=== PATIENT | female | born 1955 | race Caucasian/White ===

== ENCOUNTER 2017-02-27 11:34 | Emergency (ER) | payer OTHER, MEDICARE ==
[~2017-02-27 11:34] MED LIST: AMPH20TA17 PO; ASCO-599 PO; BEN20 PO; CEP500 PO; CLON-303 *; FLUO-202 PO; LOR5 PO; SIMV-42 PO; [UNRECOGNIZED DRUG - CODE] PO
--- NOTE | 2017-02-27 11:44 | ER Report ---
History and Physical Time Seen By MD: 11:44 HPI/ROS CHIEF COMPLAINT: Constipation HISTORY OF PRESENT ILLNESS: This is a 61-year-old female who presents to the emergency department for complaints of constipation. Patient states that over the last couple days she developed some right back pain which she states is been consistent with constipation issues she's had the past. Patient states that she went to the bathroom once today and is very small amounts nothing yesterday which is unusual for her. Patient also states that the last couple days she slept on her daughter's sofa over the holidays and has had increased back pain since then. Patient would like evaluation for her constipation. Patient denies urinary symptoms no frequency, urgency no aches, pains no chills denies nausea or vomiting. REVIEW OF SYSTEMS: Respiratory: No cough, no dyspnea. Cardiovascular: No chest pain, no palpitations. Gastrointestinal: As above. Musculoskeletal: As above. Allergies: Coded Allergies: Egg (Unverified Adverse Reaction, Mild, POST NASAL DRIP, 05/18/09) Peanut (Unverified Adverse Reaction, Mild, POST NASAL DRIP, 05/18/09) No Known Drug Allergies (Verified , 08/30/08) Home Meds Reported Medications Ascorbate Calcium (Vitamin C) 500 Mg Tablet, 500 MG PO, 0 Refills 05/18/09 Simvastatin (Zocor) 20 Mg Tablet, 20 MG PO QHS, 0 Refills 05/18/09 Benazepril Hcl 20 MG TAB (Benazepril Hcl 20 MG TAB) 20 Mg Tablet, 20 MG PO DAILY , 0 Refills 05/18/09 Fluoxetine Hcl (Prozac) 20 Mg Capsule, 20 MG PO, 0 Refills 08/30/08 Clonazepam (Clonazepam) 1 Mg Tablet, 1 MG *, 0 Refills 08/30/08 Amphet Asp/Amphet/D-Amphet (Adderall 20 Mg Tablet) 20 Mg Tablet, 20 MG PO, 0 Refills 08/30/08 Discontinued Reported Medications Cephalexin Monohydrate (Keflex) 500 Mg Cap, 500 MG PO QID, #28 0 Refills 05/18/09 Acetaminophen/Hydrocodone (Lortab 5/500) 5 Mg/500 Mg Tab, 1 - 2 TAB PO Q6H, 0 Refills 05/18/09 Guaifenesin (Guaifenesin) 400 Mg Tablet, 400 MG PO, 0 Refills 08/30/08 Past Medical/Surgical History She has a past medical history of hypertension, hypercholesterolemia, no indicated surgeries. Reviewed Nurses Notes: Yes Constitutional Vital Sign - Last 24 Hours 02/27/17 02/27/17 02/27/17 02/27/17 11:40 11:43 11:44 11:48 Temp 97.7 Pulse 62 62 Resp 20 B/P (MAP) 160/94 (116) 160/94 138/87 (104) Pulse Ox 98 97 O2 Delivery Room Air 02/27/17 12:50 Pulse 62 B/P (MAP) 127/84 (98) Pulse Ox 94 Physical Exam General Appearance: The patient is alert, has no immediate need for airway protection and no current signs of toxicity. Eyes: Pupils equal and round no injection. Respiratory: Chest is non tender, lungs are clear to auscultation. Cardiac: regular rate and rhythm, no murmurs, clicks or rubs. Gastrointestinal: Abdomen is soft and non tender, no masses, bowel sounds normal. Musculoskeletal: Neck: Neck is supple and non tender. Right CVA tenderness. Extremities have full range of motion and are non tender. Skin: No rashes or lesions. DIFFERENTIAL DIAGNOSIS: After history and physical exam differential diagnosis was considered for back pain including but not limited to muscular pain, herniated disc, spine fracture, intra-abdominal causes and urinary tract infection. Medical Decision Making Data Points Laboratory Hematology Test 02/27/17 11:57 Urine Color Straw Urine Clarity Clear Urine pH 6.0 pH (4.8-9.5) Urine Specific [place] 1.003 Urine Protein Negative mg/dL (NEGATIVE) Urine Glucose (UA) Negative mg/dL (NEGATIVE) Urine Ketones Negative mg/dL (NEGATIVE) Urine Blood Negative (NEGATIVE) Urine Nitrite Negative (NEGATIVE) Urine Bilirubin Negative (NEGATIVE) Urine Urobilinogen Negative mg/dL (0.2-1.9) Urine Leukocyte Esterase Negative (NEGATIVE) Urine RBC /HPF (0-2/HPF) Urine WBC 1 /HPF (0-5/HPF) Urine Squamous Epithelial Cells None /LPF (</=FEW) Urine Bacteria Negative /HPF (NONE-FEW) Urine Mucus None /HPF (NONE-FEW) Chemistry Test 02/27/17 11:57 Urine Color Straw Urine Clarity Clear Urine pH 6.0 pH (4.8-9.5) Urine Specific [place] 1.003 Urine Protein Negative mg/dL (NEGATIVE) Urine Glucose (UA) Negative mg/dL (NEGATIVE) Urine Ketones Negative mg/dL (NEGATIVE) Urine Blood Negative (NEGATIVE) Urine Nitrite Negative (NEGATIVE) Urine Bilirubin Negative (NEGATIVE) Urine Urobilinogen Negative mg/dL (0.2-1.9) Urine Leukocyte Esterase Negative (NEGATIVE) Urine RBC /HPF (0-2/HPF) Urine WBC 1 /HPF (0-5/HPF) Urine Squamous Epithelial Cells None /LPF (</=FEW) Urine Bacteria Negative /HPF (NONE-FEW) Urine Mucus None /HPF (NONE-FEW) Urinalysis Test 02/27/17 11:57 Urine Color Straw Urine Clarity Clear Urine pH 6.0 pH (4.8-9.5) Urine Specific [place] 1.003 Urine Protein Negative mg/dL (NEGATIVE) Urine Glucose (UA) Negative mg/dL (NEGATIVE) Urine Ketones Negative mg/dL (NEGATIVE) Urine Blood Negative (NEGATIVE) Urine Nitrite Negative (NEGATIVE) Urine Bilirubin Negative (NEGATIVE) Urine Urobilinogen Negative mg/dL (0.2-1.9) Urine Leukocyte Esterase Negative (NEGATIVE) Urine RBC /HPF (0-2/HPF) Urine WBC 1 /HPF (0-5/HPF) Urine Squamous Epithelial Cells None /LPF (</=FEW) Urine Bacteria Negative /HPF (NONE-FEW) Urine Mucus None /HPF (NONE-FEW) EKG/Imaging Imaging FACILITY: [facility] - [place] PATIENT NAME: Maliha Scales : 1955 MR: [id number] V: [id number] EXAM DATE: ORDERING PHYSICIAN: JORDON OMALLEY TECHNOLOGIST: Location: [facility] - [place] Patient: Maliha Scales : 1955 Visit/Account:[id number] Date of Sevice: 02/27/2017 ACUTE ABDOMEN SERIES 3 VIEW HISTORY: evaluate for consitpation COMPARISON: None. FINDINGS: Heart is normal. Lungs are clear. No free air. Nonobstructive bowel pattern. No free air, pneumatosis or focal wall thickening. Stool burden is within normal limits. IMPRESSION: Unremarkable abdominal series Report Dictated By: Florentino Fulton MD at 02/27/2017 12:17 PM Report E-Signed By: Florentino Fulton MD at 02/27/2017 12:18 PM [id number] ED Course/Re-evaluation ED Course Patient was admitted to room. History and physical were obtained. Differential diagnoses were considered. A 3 view abdomen series was negative for constipation. UA was negative for UTI or blood. I did review these results with the patient. Patient thought maybe the back pain was related to sleeping on her daughter's couch for a couple days over the holidays. Patient has no other complaints at this time. The patient was encouraged to follow up with her primary care provider for future needs. Patient was encouraged to return to the emergency department for worsening symptoms. No depressions or concerns at the time of discharge. Decision to Disposition Date: Feb 27, 2017 Decision to Disposition Time: 12:52 Depart Departure Latest Vital Signs Vital Signs Date Time Temp Pulse Resp B/P (MAP) Pulse Ox O2 Delivery O2 Flow Rate FiO2 02/27/17 12:50 62 127/84 (98) 94 02/27/17 11:43 97.7 20 Room Air Impression: Primary Impression: Back pain Condition: Improved Disposition: HOME OR SELF-CARE Patient Instructions: Back Pain (ED) Additional Instructions: Drink plenty of fluids. Get plenty of rest. Try gentle range of motion exercises to help eliminate low back discomfort. You can take ibuprofen 600 mg every 6 hours as needed for discomfort. If the pain is persistent follow-up with her primary care provider this week. May return to the ED for worsening symptoms. Problem Qualifiers Primary Impression: Back pain Back pain location: low back pain Chronicity: acute Back pain laterality: right Sciatica presence: without sciatica Qualified Codes: M54.5 - Low back pain JORDON [id number] Feb 27, 2017 11:44
--- NOTE | 2017-02-27 12:22 | RADIOLOGY IMAGING REPORT ---
FACILITY: [facility] [place] PATIENT NAME: Maliha Scales : 1955 MR: [id number] V: [id number] EXAM DATE: ORDERING PHYSICIAN: JORDON OMALLEY TECHNOLOGIST: Location: [facility] - [place] Patient: Maliha Scales : 1955 Visit/Account:[id number] Date of Sevice: 02/27/2017 ACUTE ABDOMEN SERIES 3 VIEW HISTORY: evaluate for consitpation COMPARISON: None. FINDINGS: Heart is normal. Lungs are clear. No free air. Nonobstructive bowel pattern. No free air, pneumat osis or focal wall thickening. Stool burden is within normal limits. IMPRESSION: Unremarkable abdominal series Report Dictated By: Florentino Fulton MD at 02/27/2017 12:17 PM Report E-Signed By: Florentino Fulton MD at 02/27/2017 12:18 PM WSN:[email or web address]
[2017-02-27 12:50] VITALS: BP 127/84
== END 2017-02-27 12:57 | disposition home or self-care (01) ==
LOC: ER 11:35
DX: M54.5 Low back pain (principal)
CPT/HCPCS: 74022; 81001; 99282